=== PATIENT | male | born 1955 | race Asian ===

== ENCOUNTER 2025-02-22 16:54 | Emergency (ER) | payer OTHER ==
[~2025-02-22] VITALS: Ht 172.7 cm; Wt 77.0 kg
[2025-02-22 17:10] LABS: PLATELET COUNT (AUTO) 242 K/uL (150-450); RED BLOOD CELL COUNT(AUTO) 5.92 MIL/uL (4.50-5.90); RED CELL DISTRIBUTION WIDTH 15.4 % (11.5-14.5); WHITE BLOOD COUNT (AUTO) 9.0 K/uL (4.5-11.0)
[2025-02-22 17:21] LABS: CALCIUM, TOTAL 8.8 mg/dL (8.8-10.5); CREATININE 1.18 mg/dL (0.60-1.30); GLOMERULAR FILTR. RATE CALC > 60 mL/min (>60); GLUCOSE,RANDOM 232 mg/dL (70-110); SODIUM SERUM 140 mmol/L (136-145); UREA NITROGEN, BLOOD 23 mg/dL (7-18)
[2025-02-22 17:26] LABS: ASPARTATE AMINOTRANSFERASE 19 U/L (15-37); CHOL/HDL RATIO 6.2 (4.2-7.3); LDL CHOL (CALC.) 140 mg/dL (0-130); TOTAL PROTEIN, SERUM 7.8 g/dL (6.4-8.2)
[2025-02-22 17:29] LABS: TROPONIN I-HIGH SENSITIVITY 5 ng/L (<76)
[2025-02-22] MEDS ORDERED: SODIUM CHLORIDE 0.9% 100 ML ONE (17:33)
[2025-02-22] MEDS ORDERED: IOHEXOL 300 MG/ML 100 ML VIAL ONE (17:33)
[2025-02-22] MEDS ORDERED: 0.9% SODIUM CHLORIDE 10 ML SYRINGE IVP ONE (17:33)
[2025-02-22 19:55] LABS: GLUCOMETER DEV NAME(LOC) ERT.7; GLUCOSE,POINT OF CARE 220 MG/DL (70-110)
[2025-02-22 22:30] VITALS: BP 125/95; PULSE 102; RESP 16; TEMP 97.9; O2SAT 95
== END 2025-02-22 23:08 | disposition short-term general hospital (02) ==
LOC: EMS 16:54
DX: R53.1 Weakness (principal); R13.10 Dysphagia, unspecified; I10 Essential (primary) hypertension; E11.65 Type 2 diabetes mellitus with hyperglycemia; G30.9 Alzheimer's disease, unspecified; I70.0 Atherosclerosis of aorta; E78.00 Pure hypercholesterolemia, unspecified; F02.80 Dementia in other diseases classified elsewhere, unspecified severity, without behavioral disturbance, psychotic disturbance, mood disturbance, and anxiety; Z85.9 Personal history of malignant neoplasm, unspecified
CPT/HCPCS: 99291; 70496; 71045; 80061; 80053; 82962; 83036; 84484; 85025; 85610; 85730; 36415; 70498; 93005; 70450; J7050; Q9967; 82948